=== PATIENT | female | born 1940 | race Caucasian/White ===

== ENCOUNTER 2020-11-13 07:25 | Emergency (ER) | payer MEDICARE ==
[2020-11-13 08:34] LABS: HEMOGLOBIN 10.9 gm/dl (12.3-15.3); RED BLOOD COUNT 3.89 M/UL (4.00-5.10); WHITE BLOOD COUNT 8.5 K/UL (4.5-11.0)
[2020-11-13 08:55] LABS: BUN/CREATININE RATIO 30 (0-10)
== END 2020-11-13 13:28 | disposition home or self-care (01) ==
LOC: ER1 07:25
PROVIDERS: Family Medicine
DX: M25.552 Pain in left hip (principal); F03.90 Unspecified dementia, unspecified severity, without behavioral disturbance, psychotic disturbance, mood disturbance, and anxiety; Z79.01 Long term (current) use of anticoagulants; Z88.5 Allergy status to narcotic agent; Z88.6 Allergy status to analgesic agent; W19.XXXA Unspecified fall, initial encounter; Z96.642 Presence of left artificial hip joint
CPT/HCPCS: 51702; 70450; 71045; 73502; 80053; 81001; 82550; 82553; 83874; 84484; 85025; 85610; 93005; 99284

== ENCOUNTER 2020-11-19 03:07 | Inpatient (IN) | payer MEDICARE ==
[~2020-11-19] VITALS: Ht 157.5 cm; Wt 53.5 kg
[2020-11-19 03:45] LABS: RED BLOOD COUNT 3.14 M/UL (4.00-5.10); WHITE BLOOD COUNT 6.7 K/UL (4.5-11.0)
[2020-11-19 04:07] LABS: BUN/CREATININE RATIO 34 (0-10)
[2020-11-19 04:16] LABS: HEMOGLOBIN 8.7 gm/dl (12.3-15.3)
--- NOTE | 2020-11-19 06:31 | NUR ---
11/19/20 0622 RECEIVED PATIENT FROM ED VIA STRETCHER. IN BED, ALERT ORIENTED TO PERSON AND PLACE PRESENTLY. BED ALARM IN USE.
[2020-11-19] MEDS ORDERED: KLONOPIN TAB 00.5 MG PO (07:12)
[2020-11-19] MEDS ORDERED: HYDROCODON-ACE1 EAC2 PO (07:12)
[2020-11-19] MEDS ORDERED: LEVOTHYROXINE100 MCG PO (07:16)
[2020-11-19] MEDS ORDERED: ALENDRONATE SOD70 MG PO (07:18)
[2020-11-19] MEDS ORDERED: AMLODIPINE BES2.5 MG PO (07:18)
[2020-11-19] MEDS ORDERED: COREG 25MG TAB25 MG PO (07:18)
[2020-11-19] MEDS ORDERED: FUROSEMIDE20 MG PO (07:23)
[2020-11-19] MEDS ORDERED: ELIQUIS5 MG PO (07:23)
[2020-11-19] MEDS ORDERED: DONEPEZIL HCL5 MG PO (07:23)
[2020-11-19] MEDS ORDERED: FERROUS SULFAT325 MG PO (07:23)
[2020-11-19] MEDS ORDERED: POTASSIUM CHLO10 ME1 PO (07:24)
[2020-11-19] MEDS ORDERED: OYSTER SHELL 51 EACH PO (07:24)
[2020-11-19] MEDS ORDERED: PROZAC 20 MG CA20 MG PO (07:24)
[2020-11-19] MEDS ORDERED: LISINOPRIL40 MG PO (07:26)
[2020-11-19] MEDS ORDERED: SIMVASTATIN10 MG PO (07:27)
[2020-11-19] MEDS ORDERED: VITAMIN D21250 MCG PO (07:28)
[2020-11-20 05:04] LABS: HEMOGLOBIN 7.7 gm/dl (12.3-15.3)
[2020-11-20 05:07] LABS: RED BLOOD COUNT 2.76 M/UL (4.00-5.10); WHITE BLOOD COUNT 4.5 K/UL (4.5-11.0)
[2020-11-20] MEDS ORDERED: LEVOTHYROXINE112 MCG PO (07:23)
[2020-11-21 03:52] LABS: HEMOGLOBIN 7.7 gm/dl (12.3-15.3)
[2020-11-21 03:57] LABS: RED BLOOD COUNT 1.58 M/UL (4.00-5.10); WHITE BLOOD COUNT 5.8 K/UL (4.5-11.0)
[2020-11-22 04:29] LABS: HEMOGLOBIN 8.2 gm/dl (12.3-15.3); WHITE BLOOD COUNT 6.7 K/UL (4.5-11.0)
[2020-11-22 04:43] LABS: RED BLOOD COUNT 2.94 M/UL (4.00-5.10)
[2020-11-22 04:56] LABS: BUN/CREATININE RATIO 25 (0-10)
[2020-11-23 04:07] LABS: HEMOGLOBIN 7.4 gm/dl (12.3-15.3)
[2020-11-23 04:15] LABS: RED BLOOD COUNT 2.64 M/UL (4.00-5.10); WHITE BLOOD COUNT 4.5 K/UL (4.5-11.0)
[2020-11-23 04:29] LABS: BUN/CREATININE RATIO 20 (0-10)
[2020-11-24 06:30] LABS: HEMOGLOBIN 8.4 gm/dl (12.3-15.3); WHITE BLOOD COUNT 5.1 K/UL (4.5-11.0)
[2020-11-24 06:39] LABS: RED BLOOD COUNT 3.05 M/UL (4.00-5.10)
[2020-11-24 06:55] LABS: BUN/CREATININE RATIO 17 (0-10)
[2020-11-24] MEDS ORDERED: HYDROCODON-ACE1 EAC2 PO (11:40)
[2020-11-24] MEDS ORDERED: KLONOPIN TAB 00.5 MG PO (11:40)
== END 2020-11-24 16:26 | DRG 535 ==
LOC: ER1 03:07 → M/S 04:45 → CDU 04:45 → M/S 06:32
PROVIDERS: Internal Medicine; Physician Assistant; Physician Assistant Medical; ADMIT Internal Medicine
PROC: B24BZZ4 Ultrasonography of Heart with Aorta, Transesophageal (ICD-10-PCS; principal; 2020-11-19)
DX: S72.112A Displaced fracture of greater trochanter of left femur, initial encounter for closed fracture (principal); E43 Unspecified severe protein-calorie malnutrition; S42.201A Unspecified fracture of upper end of right humerus, initial encounter for closed fracture; M80.88XA Other osteoporosis with current pathological fracture, vertebra(e), initial encounter for fracture; M97.02XA Periprosthetic fracture around internal prosthetic left hip joint, initial encounter; I48.20 Chronic atrial fibrillation, unspecified; E78.5 Hyperlipidemia, unspecified; Z20.822 Contact with and (suspected) exposure to COVID-19; I08.3 Combined rheumatic disorders of mitral, aortic and tricuspid valves; W18.30XA Fall on same level, unspecified, initial encounter; D64.9 Anemia, unspecified; E11.9 Type 2 diabetes mellitus without complications; I27.20 Pulmonary hypertension, unspecified; K59.00 Constipation, unspecified; R29.6 Repeated falls; D50.9 Iron deficiency anemia, unspecified; I48.0 Paroxysmal atrial fibrillation; E03.9 Hypothyroidism, unspecified; F03.90 Unspecified dementia, unspecified severity, without behavioral disturbance, psychotic disturbance, mood disturbance, and anxiety; Z96.642 Presence of left artificial hip joint; R53.81 Other malaise; Z79.01 Long term (current) use of anticoagulants; Z83.3 Family history of diabetes mellitus; Z90.710 Acquired absence of both cervix and uterus; Z90.49 Acquired absence of other specified parts of digestive tract; Z88.8 Allergy status to other drugs, medicaments and biological substances; Z68.21 Body mass index [BMI] 21.0-21.9, adult
CPT/HCPCS: ECHO; 36415; 51701; 70450; 71045; 72192; 73030; 73502; 80048; 80053; 80307; 81001; 82140; 82550; 82553; 82607; 82728; 82746; 82962; 83036; 83540; 83550; 83735; 83874; 83880; 84100; 84439; 84443; 84484; 84550; 85025; 85027; 85045; 85610; 85730; 86140; 87086; 93005; 93306; 97110-GP-CQ; 97161; 97164; 97530-GP-CQ; 99285; J1650; J2270; J2405; U0002

== ENCOUNTER 2020-11-27 18:27 | Emergency (ER) | payer MEDICARE ==
[~2020-11-27 18:27] MED LIST: ALENDRONATE SOD70 MG PO; AMLODIPINE BES2.5 MG PO; COREG 25MG TAB25 MG PO; DONEPEZIL HCL5 MG PO; ELIQUIS5 MG PO; FERROUS SULFAT325 MG PO; FUROSEMIDE20 MG PO; HYDROCODON-ACE1 EAC2 PO; KLONOPIN TAB 00.5 MG PO; LEVOTHYROXINE100 MCG PO; LEVOTHYROXINE112 MCG PO; LISINOPRIL40 MG PO; OYSTER SHELL 51 EACH PO; POTASSIUM CHLO10 ME1 PO; PROZAC 20 MG CA20 MG PO; SIMVASTATIN10 MG PO; VITAMIN D21250 MCG PO
== END 2020-11-28 01:15 | disposition home or self-care (01) ==
LOC: ER1 18:27
DX: S42.201A Unspecified fracture of upper end of right humerus, initial encounter for closed fracture (principal); S72.002A Fracture of unspecified part of neck of left femur, initial encounter for closed fracture; I48.0 Paroxysmal atrial fibrillation; F03.90 Unspecified dementia, unspecified severity, without behavioral disturbance, psychotic disturbance, mood disturbance, and anxiety; Z79.01 Long term (current) use of anticoagulants; E11.9 Type 2 diabetes mellitus without complications; I10 Essential (primary) hypertension; E78.5 Hyperlipidemia, unspecified; Z88.6 Allergy status to analgesic agent; X58.XXXA Exposure to other specified factors, initial encounter
CPT/HCPCS: 73030; 99284

== ENCOUNTER 2021-03-23 11:38 | Emergency (ER) | payer MEDICARE, OTHER ==
[2021-03-23 12:02] LABS: HEMOGLOBIN 11.3 gm/dl (12.3-15.3); RED BLOOD COUNT 3.9 M/UL (4.00-5.10); WHITE BLOOD COUNT 7.6 K/UL (4.5-11.0)
[2021-03-23 12:24] LABS: BUN/CREATININE RATIO 42 (0-10)
== END 2021-03-23 17:15 | disposition other institution (70) ==
LOC: ER1 11:38
PROVIDERS: Student in an Organized Health Care Education/Training Program
DX: I63.511 Cerebral infarction due to unspecified occlusion or stenosis of right middle cerebral artery (principal); G93.40 Encephalopathy, unspecified; J18.9 Pneumonia, unspecified organism; I48.91 Unspecified atrial fibrillation; I10 Essential (primary) hypertension; E11.9 Type 2 diabetes mellitus without complications; Z20.822 Contact with and (suspected) exposure to COVID-19
CPT/HCPCS: 36600; 51701; 70450; 71045; 80053; 81001; 82550; 82553; 82803; 83605; 83874; 84484; 85025; 87040; 87086; 93005; 96365; 96366; 96375; 99285; J0456; J0696; J7030; U0002